=== PATIENT | male | born 1985 | race Caucasian/White ===

== ENCOUNTER 2016-10-21 18:46 | Emergency (ER) | payer OTHER ==
[~2016-10-21] VITALS: Ht 180.3 cm; Wt 77.7 kg
[2016-10-21 19:18] LABS: HEMATOCRIT 45.2 % (38.0-50.0); MCH 31.2 PG (29.0-34.0); MCHC 34.7 G/DL (30.0-36.0); MCV 89.9 FL (86-99); MEAN PLAT.VOLUME 9.3 uM^3 (9.0-12.4); PLATELET COUNT 264 K/uL (156-360); RBC DIS.WIDTH-CV 12.7 % (11.8-14.6); RBC DIS.WIDTH-SD 41.9 % (39-53); RED BLOOD COUNT 5.03 M/uL (4.00-5.50); WHITE BLOOD COUNT 9.3 K/uL (4.1-10.2)
[2016-10-21 19:39] LABS: CHLORIDE 105 mEq/L (99-109); POTASSIUM 3.3 mEq/L (3.7-5.4); SODIUM 141 mEq/L (136-147)
[2016-10-21 19:41] LABS: GLUCOSE 119 mg/dL (70-99)
[2016-10-21 19:42] LABS: ANION GAP 10 MEQ/L (2-14)
[2016-10-21 19:45] LABS: GFR ESTIMATE (CALCULATED) > 59 mL/min/
[2016-10-21 19:46] LABS: UREA NITROGEN (BUN) 9 mg/dL (9-23)
[2016-10-21 22:50] VITALS: BP 133/86
== END 2016-10-21 22:52 | disposition home or self-care (01) ==
LOC: EME 18:46
DX: Z04.1 Encounter for examination and observation following transport accident (principal); F19.10 Other psychoactive substance abuse, uncomplicated; R56.9 Unspecified convulsions; F17.200 Nicotine dependence, unspecified, uncomplicated
CPT/HCPCS: 70450; 71020; 74176; 80048; 85027; 93005; 99281; 99284